=== PATIENT | female | born 1960 | race American Indian/Alaskan Native ===

== ENCOUNTER 2021-08-18 21:07 | Emergency (ER) | payer SELFPAY ==
[2021-08-18] MEDS ORDERED: ONDANSETRON 4 MG/2 ML INJ IV ONE (21:41)
--- NOTE | 2021-08-18 21:42 | Emergency Department Report ---
ED Neuro Deficit HPI - General Stated Complaint: CODE STROKE Time Seen by Provider: 08/18/21 21:07 Source: patient, EMS - History of Present Illness Initial Comments: Patient is 61 years old female with history of hypertension. Patient brought to the emergency room via EMS from home for stroke evaluation. EMS reported that patient was eating dinner around 8 PM when all of a sudden he started having headache, nausea and vomiting and confusion. EMS reported that patient found to have a right upper and lower extremity weakness. Stroke protocol immediately initiated and patient moved to CT for stat CT brain without contrast. Stat consult to structural neurologist obtained and patient examined by . -: Sudden Location: right face, dysarthria, right arm, right leg, altered Presenting Symptoms: Present: Weak/Paralyzed One Side, Sudden, Severe Headache, Unable to Speak Clearly, Altered Mental Status Place: home Severity: severe Context: sudden onset Associated Symptoms: confusion - Related Data Allergies/Adverse Reactions: Allergies Allergy/AdvReac Type Severity Reaction Status Date / Time No Known Allergies Allergy Verified 08/18/21 21:52 ED Review of Systems ROS: Stated complaint: CODE STROKE Other details as noted in HPI Comment: All other systems reviewed and negative Constitutional: denies: chills, fever Respiratory: denies: cough, shortness of breath, SOB with exertion Cardiovascular: denies: chest pain, palpitations Gastrointestinal: nausea, vomiting. denies: abdominal pain, diarrhea Musculoskeletal: denies: back pain Neurological: headache, weakness, confusion ED Neuro Physical Exam - General General appearance: alert Suspected Stroke: Yes - Head Head exam: Present: atraumatic, normocephalic, normal inspection - Eye Eye exam: Present: normal appearance - ENT ENT exam: Present: normal exam, normal orophraynx, mucous membranes moist - Neck Neck exam: Present: normal inspection, full ROM. Absent: tenderness, meningismus - Respiratory Respiratory exam: Present: normal lung sounds bilaterally - Cardiovascular Cardiovascular Exam: Present: regular rate, normal rhythm, normal heart sounds - GI/Abdominal GI/Abdominal exam: Present: soft, normal bowel sounds. Absent: distended, ten derness, guarding, rebound, rigid, organomegaly, mass, bruit, pulsatile mass, hernia - Extremities Exam Extremities exam: Present: normal inspection, full ROM, normal capillary refill. Absent: tenderness, pedal edema, calf tenderness - Back Exam Back exam: Present: normal inspection, full ROM. Absent: CVA tenderness (R), CVA tenderness (L) - Neurological Exam Neurological exam: Present: alert, altered - NIHSS Assessment Interval: Baseline 1a. Level of Consciousness: alert/keenly responsive 1b. LOC Questions: answers 1 question correctly 1c. LOC Commands: performs tasks correctly 2. Best Gaze: normal 3. Visual: no visual loss 4. Facial Palsy: normal symmetrical movement 5b. Motor Arm Right: drift 5a. Motor Arm Left: no drift 6a. Motor Leg Left: no drift 6b. Motor Leg Right: drift 7. Limb Ataxia: absent 8. Sensory: normal 9. Best Language: mild/moderate aphasia 10. Dysarthria: mild/moderate dysarthria 11. Extinction/Inattention: no abnormality Total Score: 5 Stroke Severity: Moderate Stroke - Psychiatric Psychiatric exam: Present: flat affect - Skin Skin exam: Present: warm, intact, normal color ED Course Vital Signs 08/18/21 08/18/21 08/18/21 21:30 21:54 22:00 Blood Pressure O2 Sat by Pulse 100 92 93 Oximetry 08/18/21 08/18/21 08/18/21 22:16 22:30 22:46 Blood Pressure 229/130 233/142 O2 Sat by Pulse 93 92 98 Oximetry 08/18/21 08/18/21 08/18/21 23:00 23:16 23:30 Blood Pressure 218/121 199/108 185/111 O2 Sat by Pulse 98 98 99 Oximetry 08/18/21 08/19/21 08/19/21 23:45 00:01 00:15 Blood Pressure 186/100 180/93 166/91 O2 Sat by Pulse 99 97 98 Oximetry 08/19/21 08/19/21 08/19/21 00:31 00:45 01:01 Blood Pressure 165/92 169/93 166/87 O2 Sat by Pulse 99 98 97 Oximetry - Lab Data Result diagrams: 08/18/21 21:40 08/18/21 21:40 Lab Results 08/18/21 08/18/21 08/18/21 Range/Units 21:40 21:40 21:40 WBC 10.8 (4.5-11.0) K/mm3 RBC 4.99 (3.65-5.03) M/mm3 Hgb 13.8 (10.1-14.3) gm/dl Hct 41.2 (30.3-42.9) % MCV 83 (79-97) fl MCH 28 (28-32) pg MCHC 34 (30-34) % RDW 16.0 H (13.2-15.2) % Plt Count 267 (140-440) K/mm3 Lymph % (Auto) 12.8 L (13.4-35.0) % [place] % (Auto) 3.7 (0.0-7.3) % Eos % (Auto) 0.7 (0.0-4.3) % Baso % (Auto) 1.4 (0.0-1.8) % Lymph # (Auto) 1.4 (1.2-5.4) K/mm3 [place] # (Auto) 0.4 (0.0-0.8) K/mm3 Eos # (Auto) 0.1 (0.0-0.4) K/mm3 Baso # (Auto) 0.1 (0.0-0.1) K/mm3 Seg Neutrophils % 81.4 H (40.0-70.0) % Seg Neutrophils # 8.8 H (1.8-7.7) K/mm3 PT 14.5 (12.2-14.9) Sec. INR 1.02 (0.87-1.13) APTT 25.6 (24.2-36.6) Sec. Thrombin Time 15.3 (15.1-19.6) Sec. Sodium 143 (137-145) mmol/L Potassium 3.3 L (3.6-5.0) mmol/L Chloride 103.4 (98-107) mmol/L Carbon Dioxide 26 (22-30) mmol/L Anion Gap 17 mmol/L BUN 22 H (7-17) mg/dL Creatinine 1.4 H (0.6-1.2) mg/dL Estimated GFR 46 ml/min BUN/Creatinine Ratio 16 % Glucose 180 H (65-100) mg/dL Calcium 9.4 (8.4-10.2) mg/dL Total Creatine Kinase 44 (30-135) units/L CK-MB (CK-2) < 1.0 (0.0-4.0) ng/mL CK-MB (CK-2) Rel Index 2.2 (0-4) Troponin T < 0.010 (0.00-0.029) ng/mL Urine Color (Yellow) Urine Turbidity (Clear) Urine pH (5.0-7.0) Ur Specific [place] (1.003-1.030) Urine Protein (Negative) mg/dL Urine Glucose (UA) (Negative) mg/dL Urine Ketones (Negative) mg/dL Urine Blood (Negative) Urine Nitrite (Negative) Urine Bilirubin (Negative) Urine Urobilinogen (<2.0) mg/dL Ur Leukocyte Esterase (Negative) Urine WBC (Auto) (0.0-6.0) /HPF Urine RBC (Auto) (0.0-6.0) /HPF U Epithel Cells (Auto) (0-13.0) /HPF Urine Mucus /HPF Urine Yeast (Budding) /HPF 08/19/21 Range/Units 00:59 WBC (4.5-11.0) K/mm3 RBC (3.65-5.03) M/mm3 Hgb (10.1-14.3) gm/dl Hct (30.3-42.9) % MCV (79-97) fl MCH (28-32) pg MCHC (30-34) % RDW (13.2-15.2) % Plt Count (140-440) K/mm3 Lymph % (Auto) (13.4-35.0) % [place] % (Auto) (0.0-7.3) % Eos % (Auto) (0.0-4.3) % Baso % (Auto) (0.0-1.8) % Lymph # (Auto) (1.2-5.4) K/mm3 [place] # (Auto) (0.0-0.8) K/mm3 Eos # (Auto) (0.0-0.4) K/mm3 Baso # (Auto) (0.0-0.1) K/mm3 Seg Neutrophils % (40.0-70.0) % Seg Neutrophils # (1.8-7.7) K/mm3 PT (12.2-14.9) Sec. INR (0.87-1.13) APTT (24.2-36.6) Sec. Thrombin Time (15.1-19.6) Sec. Sodium (137-145) mmol/L Potassium (3.6-5.0) mmol/L Chloride (98-107) mmol/L Carbon Dioxide (22-30) mmol/L Anion Gap mmol/L BUN (7-17) mg/dL Creatinine (0.6-1.2) mg/dL Estimated GFR ml/min BUN/Creatinine Ratio % Glucose (65-100) mg/dL Calcium (8.4-10.2) mg/dL Total Creatine Kinase (30-135) units/L CK-MB (CK-2) (0.0-4.0) ng/mL CK-MB (CK-2) Rel Index (0-4) Troponin T (0.00-0.029) ng/mL Urine Color Straw (Yellow) Urine Turbidity Clear (Clear) Urine pH 8.0 H (5.0-7.0) Ur Specific [place] 1.009 (1.003-1.030) Urine Protein 100 mg/dl (Negative) mg/dL Urine Glucose (UA) 50 (Negative) mg/dL Urine Ketones Tr (Negative) mg/dL Urine Blood Neg (Negative) Urine Nitrite Neg (Negative) Urine Bilirubin Neg (Negative) Urine Urobilinogen < 2.0 (<2.0) mg/dL Ur Leukocyte Esterase Mod (Negative) Urine WBC (Auto) 42.0 H (0.0-6.0) /HPF Urine RBC (Auto) 5.0 (0.0-6.0) /HPF U Epithel Cells (Auto) 1.0 (0-13.0) /HPF Urine Mucus Few /HPF Urine Yeast (Budding) Few /HPF - Radiology Data Radiology results: report reviewed - Medical Decision Making Patient is 61 years old female with history of hypertension. Patient brought to the emergency room via EMS from home for stroke evaluation. EMS reported that patient was eating dinner around 8 PM when all of a sudden he started having headache, nausea and vomiting and confusion. EMS reported that patient found to have a right upper and lower extremity weakness. Stroke protocol immediately initiated and patient moved to CT for stat CT brain without contrast. Stat consult to structural neurologist obtained and patient examined by . CT brain showed left basal ganglia with mass-effect. Patient GCS remained 14. Labs reviewed and is unremarkable. I discussed the patient with Dr. Bailon, neurosurgeon at [facility] and Dr. Stevesn, neuro stator winder and patient has been accepted to [place]. Critical Care Time: Yes Critical care time in (mins) excluding proc time.: 45 Critical care attestation.: If time is entered above; I have spent that time in minutes in the direct care of this critically ill patient, excluding procedure time. ED Disposition Clinical Impression: Acute intracerebral hemorrhage Disposition: 51 HOSPICE/MEDICAL FACILITY Is pt being admited?: No Condition: Stable Referrals: PRIMARY CARE, [Primary Care Provider] - 3-5 Days
[2021-08-18] MEDS ORDERED: niCARdipine DRIP 40 MG/200 ML BAG ONE (21:44)
[2021-08-18 21:47] LABS: Basophils # (Auto) 0.1 K/mm3 (0.0-0.1); Basophils % (Auto) 1.4 % (0.0-1.8); Eosinophils # (Auto) 0.1 K/mm3 (0.0-0.4); Eosinophils % (Auto) 0.7 % (0.0-4.3); Hematocrit 41.2 % (30.3-42.9); Hemoglobin 13.8 gm/dl (10.1-14.3); Lymphocytes # (Auto) 1.4 K/mm3 (1.2-5.4); Lymphocytes % (Auto) 12.8 % (13.4-35.0); Mean Corpuscular HGB Conc 34 % (30-34); Mean Corpuscular Volume 83 fl (79-97); Monocytes # (Auto) 0.4 K/mm3 (0.0-0.8); Monocytes % (Auto) 3.7 % (0.0-7.3); Platelet Count 267 K/mm3 (140-440); Red Blood Count 4.99 M/mm3 (3.65-5.03)
--- NOTE | 2021-08-18 21:52 | Emergency Department Report ---
Blank Doc - Documentation Documentation: [facility] Consult Note # Demographics Consult Type: Acute Stroke Level 1 (0-4.5 hrs) Patient Location: Emergency Room First Name: Jacquelyn Last Name: Antonio Date of : 1960 Age: 61 Facility: [facility] Time of Initial Page (Eastern Time): 08/18/2021, 21:18 Time of Return Call (Eastern Time): 08/18/2021, 21:18 # HPI History: 61 year old female with hx of htn she was eating dinner when she suddenly had nausea and vomiting. She became flaccid on the right side. Patient is confused ant not able to provide any information at this time. She is not able to tell me if she takes any blood thinners # Scores Level of Consciousness 1a: [0] = Alert; keenly responsive LOC Questions 1b: [2] = Answers neither correctly LOC Commands 1c: [2] = Performs neither correctly Best Gaze 2: [0] = Normal Visual 3: [0] = No visual loss Facial Palsy 4: [0] = Normal symmetrical movements Motor Arm Left 5a: [0] = No drift Motor Arm Right 5b: [4] = No movement Motor Leg Left 6a: [2] = Some effort against gravity Motor Leg Right 6b: [3] = No effort against gravity Limb Ataxia 7: [0] = Absent Sensory 8: [0] = Normal Best Language 9: [2] = Severe aphasia Dysarthria 10: [2] = Severe dysarthria Extinction and Inattention 11: [0] = No abnormality NIHSS Total: 17 # PMH-FH-SH Past Medical History: hypertension Social History: non-smoker occasional alcohol no drugs lives with family lives with spouse Medications: antihypertensive denies # Data Head CT: hemorrhage preliminarily reviewed by me, please refer to radiology read for official reading large left intraventricular hemorrhage # Assessment Impression: 61 year old female with hx of htn presented with right sided deficits noted to have large left intraventricular hemorrhage. BP on arrival SBP >240. Recommendations: Keep head of bed at 30 degrees is possible. Keep pain and agitation control. Keep patient euvolemic, with normal sodium and glucose levels. BP control with SBP <140. Zofran for nausea and vomiting to prevent aspiration. No family at bedside to confirm patient is on anticoagulation or not. EMs not able to provide any information. ED provider attempting to get that information. If noted to be on anticoagulation, patient will urgently need to be reversed. Labs still pending to assess further. Obtain stat CTA head and neck Repeat CTH in 6 hours for stability. Urgent Neurosurgery consult or transfer to center with capabilities. # Plan Thrombolytic/Intervention: NOT IV Thrombolysis or IA Intervention candidate Thrombolytic Exclusion (< 3 hour window): ICH Blood Pressure Management: nicardipine labetolol IV fluid bolus Target Blood Pressure: SBP < 140 DBP < 105 Labs: CBC comprehensive metabolic panel hemoglobin A1c lipid panel troponin TSH urine drug screen ua Imaging: (urgency: STAT): CT Angiogram Head and CT Angiogram Neck Imaging: (urgency: routine): CT Head without contrast MRI Brain without contrast Repeat CTH in 6 hours. MRI Brain when stable Therapy/Evaluation: NPO until swallow evaluation PT/OT evaluation speech/swallow consultation Medication: levetiracetam (Keppra) 1000 mg twice daily DVT Prophylaxis: SCD Hemorrhage Reversal: CBC, PT/INR, PTT, fibrinogen level, type and cross-match Unknown if patient on anticoagulation. Labs pending Other: consult neurosurgery If patient has any neurological deterioration please call me back immediately telemetry monitoring seizure precautions I have discussed my recommendations with the referring provider Disposition: transfer
--- NOTE | 2021-08-18 21:55 | Cat Scan Report ---
NONENHANCED CT SCAN OF THE HEAD: INDICATION / CLINICAL INFORMATION: 61 years Female; Stroke symptoms. TECHNIQUE: Routine CT head without contrast. All CT scans at this location are performed using CT dos e reduction for ALARA by means of automated exposure control. COMPARISON: None. FINDINGS: BRAIN / INTRACRANIAL CONTENTS: Abnormal CT head scan Large left basal ganglia hemorrhage and moderate in the thalamus; hemorrhage extending into the sube pendymoma space of left lateral ventricle; no blood layering in the superior temporal horns; mass eff ect over the third ventricle; no hydrocephalus; location of these hemorrhages consistent with hyperte nsive bleed Slightly prominent confluent periventricular low attenuation areas probably due to chronic small vess el disease; questionable low attenuation cerebellar hemispheric white matter CRITICAL RESULT: Time of Discovery (CHORE WORKER/CDT): 8:45 PM Time of Communication (CHORE WORKER/CDT): 8:48 PM Licensed Practitioner Receiving Report: ER physician Read-Back Performed: Yes. CRANIOCERVICAL JUNCTION: No significant abnormality. ORBITS: No significant abnormality of visualized orbits. SINUSES / MASTOIDS: No significant abnormality of the visualized paranasal sinuses or mastoid air isis ls. ADDITIONAL FINDINGS: None. IMPRESSION: Left basal ganglia hemorrhage measuring 3.3 cm (longitudinal; 2.3 cm (transverse; 1.5 cm (height); ma ss effect over the third ventricle; [id number] midline shift; no hydrocephalus; Signer Name: Nguyen Brito MD Signed: 08/18/2021 9:51 PM Workstation Name: [id number]
[2021-08-18 21:57] LABS: INR 1.02 (0.87-1.13)
[2021-08-18 21:58] LABS: Partial Thromboplastin Time 25.6 Sec. (24.2-36.6); Thrombin Time 15.3 Sec. (15.1-19.6)
[2021-08-18] MEDS ORDERED: niCARdipine 50 MG in SODIUM CHLORIDE 0.9% 250ML 230 ML IV SCH (22:00)
[2021-08-18 22:04] LABS: BUN/Creatinine Ratio 16; Blood Urea Nitrogen 22 mg/dL (7-17); Calcium 9.4 mg/dL (8.4-10.2); Hemolysis Index 6
[2021-08-18 22:05] LABS: Creatine Kinase MB < 1.0 ng/mL (0.0-4.0)
[2021-08-19 01:12] VITALS: BP 166/87
[2021-08-19] MEDS ORDERED: niCARdipine DRIP 40 MG/200 ML BAG ONE (01:35)
[2021-08-19] MEDS ORDERED: ONDANSETRON 4 MG/2 ML INJ ONE (01:41)
[2021-08-19 02:05] LABS: Bilirubin,Urine NEG (Negative); Blood,Urine NEG (Negative); Color,Urine Straw (Yellow); Mucus,Urine FEW /HPF; Urobilinogen,Urine < 2.0 mg/dL (<2.0)
== END 2021-08-19 01:47 | disposition hospice, inpatient (51) ==
LOC: ED 21:07
DX: I61.9 Nontraumatic intracerebral hemorrhage, unspecified (principal); Z79.899 Other long term (current) drug therapy
CPT/HCPCS: 36415; 70450; 80048; 81001; 82550; 82553; 84484; 85025; 85610; 85670; 85730; 87086; 93005; 96365; 96375; 99291; J2405; J3490; J7050; 99285